=== PATIENT | male | born 1940 | race African-American/Black ===

== ENCOUNTER 2016-08-15 02:23 | Inpatient (IN) | payer MEDICARE ==
[2016-08-15] VITALS (9 sets, daily range): BP systolic 118–179; BP diastolic 55–73
[~2016-08-15] VITALS: Ht 91.4 cm; Wt 69.0 kg
[~2016-08-15 02:23] MED LIST: ACETAMINOPHEN325 MG PO; FERROUS SULF325 M2 PO; GABAPENTIN100 MG PO; GABAPENTIN300 MG PO; GLIPIZIDE10 M2 PO; GLIPIZIDE5 M2 PO; GLYB/METFO5 MG/500 M PO; LANTUS SOLOSTAR SC; LISINOPRIL20 M1 PO; LISINOPRIL5 MG PO; LOPRESSOR 550 MG/TAB PO; LORTAB 10-325 M1 TAB PO; LOVASTATIN10 M1 PO; LYRICA50 MG PO; METFORMIN HCL1000 MG PO; METFORMIN1000 MG PO; MICRONASE5 MG PO; MILK OF MAG30 ML/UDC PO; NEPHROCAPS QT PO; NEURONTIN300 MG PO; NICODERM C14 MG/24 H TD; PEPCID20 MG PO; PROMETHAZINE25 MG/M1 IM; ST JOSEPH AS81 MG PO; ZESTRIL10 M1 PO
[2016-08-15 03:20] LABS: HEMATOCRIT 48.2 % (39.0-50.0); HEMOGLOBIN 15.4 g/dl (14.0-18.0); IMMATURE GRANULOCYTES 0.3 % (0.0-1.0); MEAN CELL VOLUME 97.8 fL CALC (80.0-100.0); MEAN CORPUSCULAR HGB 31.2 pG CALC (26.0-32.0); NEUT# 4.7 thou/uL (1.82-7.42); RED BLOOD COUNT 4.93 mill/uL (4.70-6.10); RED CELL DISTRI WIDTH 13.5 % (11.5-15.5)
[2016-08-15 03:20] LABS: URINE BILIRUBIN - DIPSTICK NEGATIVE (NEGATIVE); URINE BLOOD DIPSTICK SMALL (NEGATIVE); URINE CLARITY CLEAR; URINE COLOR YELLOW; URINE GLUCOSE - DIPSTICK NEGATIVE (NEGATIVE); URINE KETONE NEGATIVE (NEGATIVE); URINE NITRITE - DIPSTICK NEGATIVE (Negative); URINE PH 8.5 (4.5-8.0); URINE PROTEIN - DIPSTICK 30 mg/dL (NEG-TRACE); URINE SPECIFIC GRAVITY 1.015; URINE UROBILINOGEN - DIPSTICK 0.2 E.U./dL (0.2)
[2016-08-15 03:22] LABS: URINE LEUK ESTERASE SMALL (NEGATIVE)
[2016-08-15 03:30] LABS: URINE BACTERIA MODERATE hpf; URINE WBC 20-50 WBC/hpf (0-5)
[2016-08-15 03:36] LABS: INFLUENZA A NONE DETECTED (NONE DETECT); INFLUENZA B NONE DETECTED (NONE DETECT)
[2016-08-15 04:21] LABS: ALBUMIN 4.4 g/dL (3.2-5.0); BILIRUBIN, TOTAL 0.7 mg/dL (0.0-1.4); CALCIUM 9.8 mg/dL (8.4-10.2); CREATININE 2.6 mg/dL (0.7-1.3); TOTAL PROTEIN 7.8 g/dL (6.3-8.2)
[2016-08-15 04:23] LABS: POTASSIUM 7.2 mmol/l (3.5-5.1)
[2016-08-15 08:00] LABS: CALCIUM 9.6 mg/dL (8.4-10.2); CREATININE 2.5 mg/dL (0.7-1.3)
[2016-08-15 08:33] LABS: POTASSIUM 5.7 mmol/l (3.5-5.1)
[2016-08-15 12:51] LABS: CALCIUM 8.8 mg/dL (8.4-10.2); CREATININE 2.3 mg/dL (0.7-1.3)
[2016-08-15 13:06] LABS: POTASSIUM 6.9 mmol/l (3.5-5.1)
[2016-08-15 19:08] LABS: POTASSIUM 5.1 mmol/l (3.5-5.1)
[2016-08-15 23:27] LABS: POTASSIUM 5.2 mmol/l (3.5-5.1)
[2016-08-16] VITALS (8 sets, daily range): BP systolic 125–152; BP diastolic 55–82
[2016-08-16 05:15] LABS: HEMATOCRIT 46.9 % (39.0-50.0); HEMOGLOBIN 15.1 g/dl (14.0-18.0); IMMATURE GRANULOCYTES 0.3 % (0.0-1.0); MEAN CELL VOLUME 97.7 fL CALC (80.0-100.0); MEAN CORPUSCULAR HGB 31.5 pG CALC (26.0-32.0); MEAN CORPUSCULAR HGB CONC 32.2 g/L CALC (32.0-36.0); NEUT# 5.62 thou/uL (1.82-7.42); RED BLOOD COUNT 4.8 mill/uL (4.70-6.10); RED CELL DISTRI WIDTH 13.4 % (11.5-15.5)
[2016-08-16 05:19] LABS: CALCIUM 8.4 mg/dL (8.4-10.2); POTASSIUM 5.1 mmol/l (3.5-5.1)
[2016-08-17 04:10] VITALS: BP 134/59
[2016-08-17 06:19] LABS: HEMATOCRIT 43.7 % (39.0-50.0); IMMATURE GRANULOCYTES 0.3 % (0.0-1.0); MEAN CORPUSCULAR HGB 31.4 pG CALC (26.0-32.0); NEUT# 4.44 thou/uL (1.82-7.42); RED BLOOD COUNT 4.46 mill/uL (4.70-6.10); RED CELL DISTRI WIDTH 13.3 % (11.5-15.5)
[2016-08-17 06:30] LABS: CALCIUM 8.4 mg/dL (8.4-10.2); CREATININE 1.7 mg/dL (0.7-1.3); POTASSIUM 4.7 mmol/l (3.5-5.1)
[2016-08-17 08:03] VITALS: BP 142/71
[2016-08-17 11:04] VITALS: BP 124/61
[2016-08-17 15:21] VITALS: BP 122/59
[2016-08-17 18:45] VITALS: BP 143/72
[2016-08-18] VITALS (7 sets, daily range): BP systolic 125–145; BP diastolic 53–70
[2016-08-18 04:51] LABS: IMMATURE GRANULOCYTES 0.2 % (0.0-1.0); MEAN CELL VOLUME 98.1 fL CALC (80.0-100.0); MEAN CORPUSCULAR HGB 31.1 pG CALC (26.0-32.0); MEAN CORPUSCULAR HGB CONC 31.7 g/L CALC (32.0-36.0); NEUT# 2.63 thou/uL (1.82-7.42); RED BLOOD COUNT 4.18 mill/uL (4.70-6.10); RED CELL DISTRI WIDTH 13.2 % (11.5-15.5)
[2016-08-18 05:20] LABS: CREATININE 1.5 mg/dL (0.7-1.3); POTASSIUM 4.6 mmol/l (3.5-5.1)
[2016-08-18 14:03] LABS: URINE BILIRUBIN - DIPSTICK NEGATIVE (NEGATIVE); URINE BLOOD DIPSTICK SMALL (NEGATIVE); URINE CLARITY CLEAR; URINE COLOR YELLOW; URINE GLUCOSE - DIPSTICK NEGATIVE (NEGATIVE); URINE KETONE NEGATIVE (NEGATIVE); URINE LEUK ESTERASE NEGATIVE (NEGATIVE); URINE NITRITE - DIPSTICK NEGATIVE (Negative); URINE PROTEIN - DIPSTICK 30 mg/dL (NEG-TRACE); URINE UROBILINOGEN - DIPSTICK 0.2 E.U./dL (0.2)
[2016-08-18 15:08] LABS: URINE SQUAMOUS EPITHELIAL CELL FEW EPI/hpf (0-FEW)
[2016-08-19 04:25] VITALS: BP 135/60
[2016-08-19 04:48] LABS: HEMATOCRIT 37.3 % (39.0-50.0); HEMOGLOBIN 12.1 g/dl (14.0-18.0); IMMATURE GRANULOCYTES 0.6 % (0.0-1.0); MEAN CELL VOLUME 96.6 fL CALC (80.0-100.0); MEAN CORPUSCULAR HGB 31.3 pG CALC (26.0-32.0); MEAN CORPUSCULAR HGB CONC 32.4 g/L CALC (32.0-36.0); RED BLOOD COUNT 3.86 mill/uL (4.70-6.10); RED CELL DISTRI WIDTH 13.2 % (11.5-15.5)
[2016-08-19 05:13] LABS: CALCIUM 7.7 mg/dL (8.4-10.2); CREATININE 1.4 mg/dL (0.7-1.3); POTASSIUM 4.5 mmol/l (3.5-5.1)
[2016-08-19 08:15] VITALS: BP 157/64
[2016-08-19 11:13] VITALS: BP 141/62
[2016-08-19 14:47] VITALS: BP 142/62
[2016-08-19 19:02] VITALS: BP 161/78
[2016-08-19 23:40] VITALS: BP 162/74
[2016-08-20 04:35] VITALS: BP 168/81
[2016-08-20 05:50] LABS: HEMATOCRIT 39.2 % (39.0-50.0); IMMATURE GRANULOCYTES 0.5 % (0.0-1.0); MEAN CELL VOLUME 94.2 fL CALC (80.0-100.0); MEAN CORPUSCULAR HGB 31.3 pG CALC (26.0-32.0); MEAN CORPUSCULAR HGB CONC 33.2 g/L CALC (32.0-36.0); NEUT# 3.82 thou/uL (1.82-7.42); RED BLOOD COUNT 4.16 mill/uL (4.70-6.10)
[2016-08-20 06:08] LABS: ANION GAP 15 (6-22 (CALC)); BUN 17 mg/dL (8-23); BUN/CREATININE RATIO 13 (12-20 (CALC)); CALCIUM 8.6 mg/dL (8.4-10.2); CARBON DIOXIDE 20 mmol/l (22-30); CHLORIDE 110 mmol/l (95-108); CREATININE 1.3 mg/dL (0.7-1.3); GFR 54 ML/MIN (>=60 (CALC)); GFR FOR AFR.AMER. > 60 ML/MIN (>=60 (CALC)); GLUCOSE 138 mg/dL (82-115); POTASSIUM 4.5 mmol/l (3.5-5.1); SODIUM 141 mmol/l (137-146)
[2016-08-20 08:03] VITALS: BP 148/70
[2016-08-20 12:32] VITALS: BP 129/67
[2016-08-20 15:34] VITALS: BP 125/72
[2016-08-20 19:00] VITALS: BP 161/86
[2016-08-20 23:55] VITALS: BP 143/67
[2016-08-21] VITALS (7 sets, daily range): BP systolic 115–154; BP diastolic 53–75
[2016-08-22] VITALS (11 sets, daily range): BP systolic 128–157; BP diastolic 58–79
[2016-08-22 06:12] LABS: ANION GAP 12 (6-22 (CALC)); BUN 15 mg/dL (8-23); BUN/CREATININE RATIO 12 (12-20 (CALC)); CALCIUM 8.2 mg/dL (8.4-10.2); CARBON DIOXIDE 19 mmol/l (22-30); CHLORIDE 110 mmol/l (95-108); CREATININE 1.2 mg/dL (0.7-1.3); GFR 59 ML/MIN (>=60 (CALC)); GFR FOR AFR.AMER. > 60 ML/MIN (>=60 (CALC)); GLUCOSE 94 mg/dL (82-115); HEMATOCRIT 34.5 % (39.0-50.0); HEMOGLOBIN 11.6 g/dl (14.0-18.0); IMMATURE GRANULOCYTES 0.8 % (0.0-1.0); MEAN CELL VOLUME 91.8 fL CALC (80.0-100.0); MEAN CORPUSCULAR HGB 30.9 pG CALC (26.0-32.0); MEAN CORPUSCULAR HGB CONC 33.6 g/L CALC (32.0-36.0); POTASSIUM 4.1 mmol/l (3.5-5.1); RED BLOOD COUNT 3.76 mill/uL (4.70-6.10); SODIUM 138 mmol/l (137-146)
[2016-08-22 06:40] LABS: MANUAL DIFFERENTIAL YES; PLATELET COUNT 180 thou/uL (130-400)
[2016-08-23] VITALS (7 sets, daily range): BP systolic 135–177; BP diastolic 55–79
[2016-08-23 05:11] LABS: HEMATOCRIT 37.9 % (39.0-50.0); HEMOGLOBIN 12.7 g/dl (14.0-18.0); IMMATURE GRANULOCYTES 0.6 % (0.0-1.0); MEAN CELL VOLUME 92.2 fL CALC (80.0-100.0); MEAN CORPUSCULAR HGB 30.9 pG CALC (26.0-32.0); MEAN CORPUSCULAR HGB CONC 33.5 g/L CALC (32.0-36.0); NEUT# 5.1 thou/uL (1.82-7.42); RED BLOOD COUNT 4.11 mill/uL (4.70-6.10); RED CELL DISTRI WIDTH 13.1 % (11.5-15.5)
[2016-08-23 05:38] LABS: ANION GAP 13 (6-22 (CALC)); BUN 15 mg/dL (8-23); BUN/CREATININE RATIO 13 (12-20 (CALC)); CALCIUM 8.3 mg/dL (8.4-10.2); CARBON DIOXIDE 21 mmol/l (22-30); CHLORIDE 109 mmol/l (95-108); CREATININE 1.2 mg/dL (0.7-1.3); GFR 59 ML/MIN (>=60 (CALC)); GFR FOR AFR.AMER. > 60 ML/MIN (>=60 (CALC)); GLUCOSE 112 mg/dL (82-115); MAGNESIUM 1.8 mg/dL (1.6-2.3); POTASSIUM 4.1 mmol/l (3.5-5.1); SODIUM 138 mmol/l (137-146)
[2016-08-23] MEDS ORDERED: LOPRESSOR 550 MG/TAB PO (12:54)
[2016-08-23] MEDS ORDERED: ELIQUIS2.5 MG PO (12:54)
[2016-08-23] MEDS ORDERED: Levaquin PO (12:55)
[2016-08-23] MEDS ORDERED: MEROPENEM1 GM IV (12:55)
== END 2016-08-23 14:30 | DRG 872 ==
LOC: ENPENDDIS → ED 02:23 → ED-I 04:35 → ED 04:59 → ICU 05:00 → MS2 05:00 → ICU 08-22 09:10
PROVIDERS: Emergency Medicine; Internal Medicine; ADMIT Internal Medicine; ATTEND Internal Medicine
PROC: 0T9B70Z Drainage of Bladder with Drainage Device, Via Natural or Artificial Opening (ICD-10-PCS; principal; 2016-08-15)
PROC: 05H933Z Insertion of Infusion Device into Right Brachial Vein, Percutaneous Approach (ICD-10-PCS; 2016-08-23)
PROC: B516ZZA Fluoroscopy of Right Subclavian Vein, Guidance (ICD-10-PCS; 2016-08-23)
DX: A41.9 Sepsis, unspecified organism (principal); N17.9 Acute kidney failure, unspecified; E87.2 Acidosis; E11.40 Type 2 diabetes mellitus with diabetic neuropathy, unspecified; M62.82 Rhabdomyolysis; D69.6 Thrombocytopenia, unspecified; N39.0 Urinary tract infection, site not specified; I47.1 Supraventricular tachycardia; R65.20 Severe sepsis without septic shock; E87.5 Hyperkalemia; I10 Essential (primary) hypertension; I25.10 Atherosclerotic heart disease of native coronary artery without angina pectoris; B96.89 Other specified bacterial agents as the cause of diseases classified elsewhere; I48.0 Paroxysmal atrial fibrillation; E83.42 Hypomagnesemia; F03.90 Unspecified dementia, unspecified severity, without behavioral disturbance, psychotic disturbance, mood disturbance, and anxiety; F10.21 Alcohol dependence, in remission
CPT/HCPCS: J0692; J1956; J2185; J3370

== ENCOUNTER 2017-02-07 17:15 | Observation (INO) | payer MEDICARE, OTHER ==
[~2017-02-07] VITALS: Ht 188 cm; Wt 70.0 kg
[~2017-02-07 17:15] MED LIST changes: +ELIQUIS2.5 MG PO; +Levaquin PO; +MEROPENEM1 GM IV
--- NOTE | 2017-02-07 17:35 | NUR ---
PATIENT WHEELED INTO LOBBY UNRESPONSIVE AND LEFT. PATIENT BROUGHT TO ROOM 11 AND ACCUCHECK COMPLETED PATIENT BLOOD SUGAR 29. VERBAL ORDERS FOR D50 RECIEVED AND ADMINSTERED. PATIENJT ALERT AND ORIENTED AFTER 5 MINUTES. PATIENT STATES TOOK MEDICATION BNUT DOESNT EAT TOO MUCH JUST SOME LIQUOR
[2017-02-07 18:06] LABS: HEMATOCRIT 46.4 % (39.0-50.0); HEMOGLOBIN 15.4 g/dl (14.0-18.0); IMMATURE GRANULOCYTES 0.2 % (0.0-1.0); MEAN CELL VOLUME 97.7 fL CALC (80.0-100.0); MEAN CORPUSCULAR HGB 32.4 pG CALC (26.0-32.0); MEAN CORPUSCULAR HGB CONC 33.2 g/L CALC (32.0-36.0); NEUT# 2.85 thou/uL (1.82-7.42); RED BLOOD COUNT 4.75 mill/uL (4.70-6.10); RED CELL DISTRI WIDTH 14.6 % (11.5-15.5)
--- NOTE | 2017-02-07 18:17 | NUR ---
PATEINT RESTING VOICES NO COMPLAINTS AT THIS TIME. PATIENT ALERT AND ORIENTED AT THIS TIME. PATIENT STATES HE TAKES MEDICATION WHEN HE WANTS TO AND DOESNT KNOW EXACTLY WHAT HE TAKES OR LAST TIME HE TOOK ANYTHING. AT BEDSIDE AND IS ALSO UNSURE OF PATIENTS CURRENT MEDICATION LIST OR FREQUENCY AT WHICH PATIENT TAKES MEDICATION
[2017-02-07 18:22] LABS: ALBUMIN 3.9 g/dL (3.2-5.0); BILIRUBIN, TOTAL 0.8 mg/dL (0.0-1.4); CALCIUM 9.2 mg/dL (8.4-10.2); CREATININE 1.4 mg/dL (0.7-1.3); POTASSIUM 4.6 mmol/l (3.5-5.1); TOTAL PROTEIN 6.6 g/dL (6.3-8.2)
--- NOTE | 2017-02-07 18:30 | NUR ---
REPORT RECIEVED FROM MERARY RYAN. PATIENT RESTING COMFORTABLY IN STRETCHER. IV FLUIDS INITIATED. ACCUCHECK RECHECK 126. PATIENT A&O X3 AND DENIES ANY PAIN AT THIS TIME. PATIENT FAMILY AT BEDSIDE. WILL CONTINUE TO MONITOR.
[2017-02-07 18:54] LABS: URINE BILIRUBIN - DIPSTICK NEGATIVE (NEGATIVE); URINE BLOOD DIPSTICK SMALL (NEGATIVE); URINE CLARITY CLEAR; URINE COLOR YELLOW; URINE GLUCOSE - DIPSTICK 250 mg/dL (NEGATIVE); URINE KETONE NEGATIVE (NEGATIVE); URINE LEUK ESTERASE NEGATIVE (NEGATIVE); URINE NITRITE - DIPSTICK NEGATIVE (Negative); URINE PROTEIN - DIPSTICK 30 mg/dL (NEG-TRACE); URINE UROBILINOGEN - DIPSTICK 0.2 E.U./dL (0.2)
--- NOTE | 2017-02-07 19:00 | NUR ---
NOTIFIED OF DECREASING BLOOD SUGAR. MEAL TRAY SERVED.
[2017-02-07 19:06] LABS: URINE SQUAMOUS EPITHELIAL CELL FEW EPI/hpf (0-FEW)
--- NOTE | 2017-02-07 19:10 | NUR ---
REPORT GIVEN TO MERARY SEE.
--- NOTE | 2017-02-07 19:14 | NUR ---
REPORT GIVEN TO MERARY GRISSOM AND CELSA SANDOVAL.
--- NOTE | 2017-02-07 19:40 | NUR ---
PT IVF COMPLETED. WARM BLANET GIVEN. DENIES ANY PAIN AT THIS TIME. THANKFUL TOWARDS STAFF. B/S. CALL LIGHT WITHIN REACH.
[2017-02-07 19:44] LABS: BARBITURATES NEGATIVE (NEGATIVE); COCAINE NEGATIVE (NEGATIVE); METHADONE NEGATIVE (NEGATIVE); OXCYCODONE NEGATIVE (NEGATIVE); TETRAHYDROCANNABIONOL NEGATIVE (NEGATIVE); TRICYLIC ANTIDEPRESSANTS NEGATIVE (NEGATIVE)
--- NOTE | 2017-02-07 19:57 | NUR ---
2ND LACTIC DRAWN BY EXCHANGE SPECIALIST.
--- NOTE | 2017-02-07 20:01 | NUR ---
D5LR INFUSING TO LAC. PT TOLERATING WELL. DENIES ANY NEEDS AT THIS TIME. VSS. RESP EVEN AND UNLABORED. CALL LIGHT WITHIN REACH. WILL CONTIUE TO MONITOR.
--- NOTE | 2017-02-07 20:05 | NUR ---
REPORT GIVEN TO CRISTIAN ON [facility]
--- NOTE | 2017-02-07 20:07 | NUR ---
Admission Note Report Given to: MERARY FOSTER Transported by: Wheelchair X Stretcher Transported with: X Nurse Transporter X Patent IV O2 X [address] Clerk
--- NOTE | 2017-02-07 20:25 | NUR ---
PT TAMEKA FLOOR WITH ER STAFF. AMBULATED FROM STRETCHER TO BED IN ROOM 280. ACCU CHECK DONE AT THIS TIME WAS 128. WILL CONTINUE TO MONITOR.
--- NOTE | 2017-02-07 21:10 | NUR ---
PT RESTING IN BED WITH EYES CLOSED. AROUSED TO VERBAL STIMULI. BED ALARM ON PT DUE TO NOT BEING STEADY ON FEET AND PERIODS OF CONFUSION. PT IS ALERT AND ORIENTED. PERRLA. DENTURES REMOVED DUE TO PT SLEEPING. AND THEY'RE FALLING OUT. RESP ARE EVEN AND UNLABORED. LUNGS ARE CLEAR. TELE IN PLACE. HR REGULAR. PULSES PALPABLE THROUGHOUT. NO EDEMA NOTED. BS ACTIVE. #20 LAC WITH D5LR INFUSING AT 75CC/HR. NO REDNESS OR EDEMA NOTED AT SITE. WILL CONTINUE TO MONITOR.
[2017-02-07 21:15] VITALS: BP 129/57
--- NOTE | 2017-02-07 22:36 | NUR ---
ACCUCHECK 70. ORANGE JUICE GIVEN TO PATIENT. WILL RECHECK ACCUCHECK AND CONTINUE TO MONITOR.
--- NOTE | 2017-02-07 23:31 | NUR ---
ACCU CHECK 68. ENSURE CLEAR GIVEN WITH 27GRAMS OF SUGAR. WILL RECHECK ACCUCHECK IN 1 HOUR.
--- NOTE | 2017-02-07 23:40 | NUR ---
1 AMP D50 GIVEN TO PT. WILL RECHECK ACCUCHECK AND CONTINUE TO MONITOR
[2017-02-07 23:57] VITALS: BP 144/67
--- NOTE | 2017-02-08 00:36 | NUR ---
ACCUCHECK 155. WILL RECHECK IN 2 HOURS.
--- NOTE | 2017-02-08 01:10 | NUR ---
report recevied from Shayy Avalos RN; care assumed
--- NOTE | 2017-02-08 02:03 | NUR ---
resting with eyes closed; no distress noted; easily arousable; alert and oriented; accucheck 97; iv patent; no redness or edema noted at site; bed alarm active for pt safety; will continue to monitor
[2017-02-08 04:03] VITALS: BP 140/68
--- NOTE | 2017-02-08 04:03 | NUR ---
pt resting with eyes closed; resp even and unlabored; easily aroused; a&o X3; denies s/sx of hypoglycemia; accucheck 72; pt declines po fluids/food offered; medicated with D50 as per orders/parameter; vss; bed alarm attached for pt safety; tele monitor intact; will continue to monitor
[2017-02-08 05:31] LABS: ANION GAP 9 (6-22 (CALC)); BUN 11 mg/dL (8-23); BUN/CREATININE RATIO 8 (12-20 (CALC)); CALCIUM 8.5 mg/dL (8.4-10.2); CARBON DIOXIDE 20 mmol/l (22-30); CHLORIDE 114 mmol/l (95-108); CREATININE 1.3 mg/dL (0.7-1.3); GFR 54 ML/MIN (>=60 (CALC)); GFR FOR AFR.AMER. > 60 ML/MIN (>=60 (CALC)); GLUCOSE 122 mg/dL (82-115); MAGNESIUM 1.5 mg/dL (1.6-2.3); POTASSIUM 4.5 mmol/l (3.5-5.1); SODIUM 139 mmol/l (137-146)
--- NOTE | 2017-02-08 06:14 | NUR ---
resting in bed with eyes closed; easily aroused; offers no complaints; iv patent; accucheck of 88; bed alarm attached for pt safety; bed in lowest position; call light within reach
--- NOTE | 2017-02-08 06:40 | NUR ---
pt able to take 200ml of Ensure clear/27 gm sugar
--- NOTE | 2017-02-08 07:00 | NUR ---
RECEIVED BEDSIDE REPORT FROM RIKA REAGAN. RESTING IN BED WITH EYES CLSOED, AWAKENS EASILY. RESPS EVEN AND UNLABORED ON ROOM AIR, TELE MONITOR IN PLACE. VOICES NO NEEDS AT THIS TIME. PLAN OF CARE DISCUSSED. SAFETY PRECAUTIONS REINFORCED. BED IN LOWEST POSITION WITH WHEELS LOCKED. BED ALARM ON FOR SAFETY. CALL LIGHT WITHIN REACH. WILL CONTINUE TO MONITOR.
[2017-02-08 07:21] VITALS: BP 134/62
[2017-02-08] MEDS ORDERED: TRADJENTA5 MG PO (09:23)
--- NOTE | 2017-02-08 09:30 | NUR ---
DR GARCIA IN WITH PT, NEW ORDERS RECEIVED.
[2017-02-08] MEDS ORDERED: METFORMIN1000 MG PO (10:08)
[2017-02-08] MEDS ORDERED: GABAPENTIN300 M2 PO (10:11)
[2017-02-08] MEDS ORDERED: METOPROL TAR100 MG PO (10:13)
[2017-02-08] MEDS ORDERED: ELIQUIS2.5 MG PO (10:14)
[2017-02-08] MEDS ORDERED: ACID CONTROL MA20 MG PO (10:14)
[2017-02-08 12:00] VITALS: BP 141/72
--- NOTE | 2017-02-08 13:55 | NUR ---
RESTING IN BED WATCHING TV. AT BEDSIDE. RESPS EVEN AND UNLABORED ON ROOM AIR, TELE MONITOR IN PLACE. ACCUCHECK 114. DENIES PAIN OR DISCOMFORT. CALL LIGHT IWHTIN REACH. WILL CONTINUE TO MONITOR.
--- NOTE | 2017-02-08 15:17 | NUR ---
Discharge instructions given. Patient verbalizes understanding of same. Discharged in stable condition via Wheelchair to Home with spouse. All belongings sent with pt.
== END 2017-02-08 15:15 ==
LOC: ED 17:15 → ED-I 17:51 → ED 17:51 → MS2 19:27
PROVIDERS: Emergency Medicine; ADMIT Internal Medicine; ATTEND Internal Medicine
DX: E11.649 Type 2 diabetes mellitus with hypoglycemia without coma (principal); G93.41 Metabolic encephalopathy; E11.42 Type 2 diabetes mellitus with diabetic polyneuropathy; I10 Essential (primary) hypertension; K21.9 Gastro-esophageal reflux disease without esophagitis; I48.0 Paroxysmal atrial fibrillation; E83.42 Hypomagnesemia; F17.290 Nicotine dependence, other tobacco product, uncomplicated; Z79.84 Long term (current) use of oral hypoglycemic drugs; Z79.01 Long term (current) use of anticoagulants

== ENCOUNTER → 2018-01-16 | Outpatient (REF) | payer MEDICARE ==
[~2018-01-16] MED LIST changes: +ACID CONTROL MA20 MG PO; +GABAPENTIN300 M2 PO; +METOPROL TAR100 MG PO; +TRADJENTA5 MG PO
[2018-01-16 09:28] LABS: HEMATOCRIT 44.9 % (39.0-50.0); IMMATURE GRANULOCYTES 0.1 % (0.0-5.0); MEAN CELL VOLUME 97.2 fL CALC (80.0-100.0); MEAN CORPUSCULAR HGB 32.5 pG CALC (26.0-32.0); MEAN CORPUSCULAR HGB CONC 33.4 g/L CALC (32.0-36.0); NEUT# 1.59 thou/uL (1.82-7.42); RED BLOOD COUNT 4.62 mill/uL (4.70-6.10); RED CELL DISTRI WIDTH 12.6 % (11.5-15.5)
[2018-01-16 10:16] LABS: ALBUMIN 4.2 g/dL (3.2-5.0); BILIRUBIN, TOTAL 0.8 mg/dL (0.0-1.4); CHOLESTEROL HDL RATIO 3.5 (<4.4 (CALC)); CREATININE 2.4 mg/dL (0.7-1.3); TOTAL PROTEIN 7.3 g/dL (6.3-8.2)
[2018-01-16 10:21] LABS: POTASSIUM 5.6 mmol/l (3.5-5.1)
== END | disposition home or self-care (01) ==
LOC: LAB 08:17
PROVIDERS: ATTEND Internal Medicine Geriatric Medicine
DX: E11.9 Type 2 diabetes mellitus without complications (principal); I10 Essential (primary) hypertension; N18.6 End stage renal disease

== ENCOUNTER → 2018-06-17 | Outpatient (REF) | payer MEDICARE ==
[2018-06-17 08:51] LABS: HEMATOCRIT 39.5 % (39.0-50.0); IMMATURE GRANULOCYTES 0.2 % (0.0-5.0); MEAN CELL VOLUME 93.6 fL CALC (80.0-100.0); MEAN CORPUSCULAR HGB 30.8 pG CALC (26.0-32.0); MEAN CORPUSCULAR HGB CONC 32.9 g/L CALC (32.0-36.0); NEUT# 2.02 thou/uL (1.82-7.42); RED BLOOD COUNT 4.22 mill/uL (4.70-6.10); RED CELL DISTRI WIDTH 13.2 % (11.5-15.5)
[2018-06-17 09:12] LABS: ALBUMIN 4.3 g/dL (3.2-5.0); BILIRUBIN, TOTAL 0.5 mg/dL (0.0-1.4); CHOLESTEROL HDL RATIO 2.5 (<4.4 (CALC)); CREATININE 2.3 mg/dL (0.7-1.3); TOTAL PROTEIN 7.1 g/dL (6.3-8.2)
== END | disposition home or self-care (01) ==
LOC: LAB 07:51
PROVIDERS: Internal Medicine Geriatric Medicine; ATTEND Nurse Practitioner Family
DX: I10 Essential (primary) hypertension (principal); E11.9 Type 2 diabetes mellitus without complications

== ENCOUNTER 2018-09-16 16:49 | Observation (INO) | payer MEDICARE ==
[~2018-09-16] VITALS: Ht 188 cm; Wt 63.6 kg
--- NOTE | 2018-09-16 17:16 | NUR ---
PT ARRIVED TO MED/SURG ROOM 262 VIA WHEELCHAIR IN STABLE CONDITION ACCOMPANIED BY CELSA KING;PT AMBULATED WITH A STEADY GAIT TO BEDSIDE; A&O X4,ORIENTED TO ROOM AND CALL LIGHT SYSTEM;WT AND VS OBTAINED;PT REPORTS HAVING LAB WORK DONE THIS MORNING AT [facility] AND 'S OFFICE CALLING TO REPORT HE WAS HYPERCALEMIC AND NEEDED TO REPORT DIRECTLY TO MED/SURG FOR DIRECT ADMIT;PT DENIES ANY CURRENT PAIN OR DISCOMFORTS,PAIN SCALE AND REPORTING EDUCATED;RESPIRATIONS EVEN AND UNLABORED ON RA;ABDOMEN SOFT ON PALPATION AND ACTIVE IN ALL 4 QUADRANTS, LAST BM 09/16/18;WEAK PEDAL PULSES;GENERALIZED DRYNESS/FLAKINESS NOTED TO SKIN,OTHERWISE APPEARS INTACT;TELE MONITORING PLACED ON PT;ACCUCHECK 79;UNABLE TO OBTAIN IV SITE AFTER X2 ATTEMPTS, ANOTHER NURSE WILL ATTEMPT;PRUNE JUICE PROVIDED PER ORDER;PT DENIES ANY ADDITIONAL NEEDS AND IS ENCOURAGED TO CALL FOR ASSISTANCE IF NEEDED;FALL PRECAUTIONS IN PLACE WITH BED IN THE LOWEST POSITION AND CALL LIGHT IN REACH;WILL CONTINUE TO MONITOR
[2018-09-16 17:47] VITALS: BP 153/58
[2018-09-16 18:26] LABS: HEMATOCRIT 38.5 % (39.0-50.0); HEMOGLOBIN 12.3 g/dl (14.0-18.0); IMMATURE GRANULOCYTES 0.1 % (0.0-5.0); MEAN CELL VOLUME 95.3 fL CALC (80.0-100.0); MEAN CORPUSCULAR HGB 30.4 pG CALC (26.0-32.0); MEAN CORPUSCULAR HGB CONC 31.9 g/L CALC (32.0-36.0); NEUT# 3.05 thou/uL (1.82-7.42); RED BLOOD COUNT 4.04 mill/uL (4.70-6.10); RED CELL DISTRI WIDTH 13.5 % (11.5-15.5)
[2018-09-16 18:49] VITALS: BP 169/65
[2018-09-16 18:54] LABS: CREATININE 2.1 mg/dL (0.7-1.3)
--- NOTE | 2018-09-16 19:30 | NUR ---
PATIENT RESTING IN BED AWAKE ALERT AND ORIENTEDX3. AUREA REAGAN FROM IVT HERE AND WAS UNABLE TO GET IV ACCESS, TELE MONITOR IN PLACE. PATIENT WITH NO COMPLAINTS EXCEPT-"NO MORE STICKS". 1999-WAS UNABLE TO GET IV ACCESS AFTER 2 ATTEMPTS. TYREE REAGAN FROM ER HERE AND WAS ABLE TO ACCESS LEFT NECK SITE WITH GOOD BLOOD RETURN. PATIENT WAS ABLE TO PROVIDED URINE SPEC AND IT WAS SENT TO LAB. SPOKE TO DR. BONDS TO CLARIFY NA BICARB ORDER. PATIENT WITH NO COMPLAINTS AT THIS TIME. CALL LIGHT IN REACH, WILL CONT TO MONITOR.
--- NOTE | 2018-09-16 20:45 | NUR ---
PATIENT RESTING IN BED-MEDICATED WITH KAYXELATE 30GM PO ORDERED ALONG WITH HS MEDS. 2114- I AMP OF SODIUM BICARB GIVEN ORDERED SLOW IVP. IVF NS HUNG AND INFUSING AT 100CC/HR VIA LEFT NECK SITE. 2029-SODIUM BICARB GTT HUNG ORDERED-1 AMP IN 50CC OF NACL. PATIENT WITH NO COMPLAINTS AT THIS TIME. MUCH CALMER NOW THAT IV SITE HAS BEEN ACCESSED. ASAFETY PRECAUTIONS REINFORCED. CALL LIGHT IN REACH. WILL CONT TO MONITOR.
[2018-09-16 22:45] LABS: URINE BILIRUBIN - DIPSTICK NEGATIVE (NEGATIVE); URINE BLOOD DIPSTICK NEGATIVE (NEGATIVE); URINE COLOR YELLOW; URINE GLUCOSE - DIPSTICK NEGATIVE (NEGATIVE); URINE KETONE NEGATIVE (NEGATIVE); URINE LEUK ESTERASE NEGATIVE (Negative); URINE NITRITE - DIPSTICK NEGATIVE (Negative); URINE PH 5.5 (4.5-8.0); URINE PROTEIN - DIPSTICK NEGATIVE (NEG-TRACE); URINE SPECIFIC GRAVITY 1.025; URINE UROBILINOGEN - DIPSTICK 0.2 E.U./dL (0.2)
[2018-09-16 22:58] LABS: URINE CLARITY CLEAR
[2018-09-17] VITALS: BP 126/59
--- NOTE | 2018-09-17 00:55 | NUR ---
PATIENT APPEARS SLEEPING AT THIS TIME. IVF NS PATENT AND INFUSING LEFT NECK SITE. APPEARS HEALTHY AT THIS TIME. TELE MONITOR IN PLACE. CALL LIGHT IN REACH. WILL CONT TO MONITOR.
[2018-09-17 03:38] VITALS: BP 135/59
[2018-09-17 05:43] LABS: BILIRUBIN, TOTAL 0.5 mg/dL (0.0-1.4); CREATININE 1.8 mg/dL (0.7-1.3); TOTAL PROTEIN 5.6 g/dL (6.3-8.2)
[2018-09-17 05:51] LABS: ALBUMIN 3.1 g/dL (3.2-5.0); POTASSIUM 5.7 mmol/l (3.5-5.1)
--- NOTE | 2018-09-17 07:05 | NUR ---
REPORT RECEIVED FROM MERARY HARDY;PT APPEARS TO BE SLEEPING IN SEMI FOWLERS POSITION;RESPIRATIONS EVEN AND UNLABORED ON RA;NO S/S OF DISTRESS NOTED;IV FLUIDS INFUSING WITH EASE;TELE MONITORING IN PLACE;SAFETY PRECAUTIONS REINFORCED WITH BED IN THE LOWEST POSITION AND CALL LIGHT IN REACH;WILL CONTINUE TO MONITOR
--- NOTE | 2018-09-17 08:00 | NUR ---
PT RESTING AT BEDSIDE EATING BREAKFAST,A&O X3;VS OBTAINED AND ASSESSMENT COMPLETED;PT DENIES ANY CURRENT PAIN OR DISCOMFORTS,PAIN SCALE AND REPORTING EDUCATED;RESPIRATIONS EVEN AND UNLABORED ON RA,CLEAR LUNG SOUNDS;ABDOMEN SOFT ON PALPATION AND ACTIVE IN ALL 4 QUADRANTS;WEAK PEDAL PULSES;SKIN INTACT;TELE MONITORING IN PLACE;IV SITE INFUSING NS @ 100ML.HR,SITE APPEARS HEALTHY;PT DENIES ANY CURRENT NEEDS AND IS ENCOURAGED TO CALL FOR ASSISTANCE IF NEEDED;FALL PRECAUTIONS IN PLACE WITH CALL LIGHT IN REACH;WILL CONTINUE TO MONITOR
[2018-09-17 08:02] VITALS: BP 135/42
--- NOTE | 2018-09-17 08:35 | NUR ---
AT BEDSIDE DISCUSSING POC WITH PT INCLUDING D/C HOME.
[2018-09-17 11:03] VITALS: BP 141/49
--- NOTE | 2018-09-17 12:00 | NUR ---
PT RESTING IN SEMI FOWLERS POSITION EATING LUNCH;RESPIRATIONS EVEN AND UNLABORED ON RA;PT DENIES ANY CURRENT PAIN OR DISCOMFORTS;TELE MONITORING IN PLACE;ACCUCHECK 86;PT DENIES ANY ADDITIONAL NEEDS AND IS ENCOURAGED TO CALL FOR ASSISTANCE IF NEEDED;CALL LIGHT IN REACH;WILL CONTINUE TO MONITOR
--- NOTE | 2018-09-17 13:40 | NUR ---
ALL DISCHARGE INSTRUCTIONS PROVIDED AT THIS TIME,PT INSTRUCTED TO FOLLOW UP WITH PRIMARY CARE DOCTOR;IV SITE REMOVED WITH CATHETER INTACT;PT DENIES ANY ADDITIONAL NEEDS AT THIS TIME;WHEELCHAIR TO BE PROVIDED FOR DISCHARGE HOME.
[2018-09-17 13:42] LABS: CREATININE 1.8 mg/dL (0.7-1.3)
[2018-09-17 13:43] LABS: POTASSIUM 5.3 mmol/l (3.5-5.1)
--- NOTE | 2018-09-17 14:00 | NUR ---
Discharge instructions given. Patient verbalizes understanding of same. Discharged in stable condition via Wheelchair to Home with *Other. All belongings sent with pt. Pt discharged in stable condition via wheelchair accompanied by volunteer. Pt to transport himself home.
== END 2018-09-17 14:00 | disposition home or self-care (01) ==
LOC: MS2 16:49
PROVIDERS: ADMIT Internal Medicine Geriatric Medicine; ATTEND Internal Medicine Geriatric Medicine
DX: E87.5 Hyperkalemia (principal); I12.9 Hypertensive chronic kidney disease with stage 1 through stage 4 chronic kidney disease, or unspecified chronic kidney disease; E11.22 Type 2 diabetes mellitus with diabetic chronic kidney disease; N18.9 Chronic kidney disease, unspecified; E11.42 Type 2 diabetes mellitus with diabetic polyneuropathy; I25.10 Atherosclerotic heart disease of native coronary artery without angina pectoris; J44.9 Chronic obstructive pulmonary disease, unspecified; I48.0 Paroxysmal atrial fibrillation; E87.2 Acidosis; M19.90 Unspecified osteoarthritis, unspecified site

== ENCOUNTER 2018-10-01 17:25 | Observation (INO) | payer MEDICARE ==
[~2018-10-01] VITALS: Ht 165.1 cm; Wt 71.1 kg
--- NOTE | 2018-10-01 17:40 | NUR ---
PT ARRIVED TO FLOOR VIA , AMBUALTED TO BED. STEADY GAIT. REPORTS GENERALIZED WEAKNESS TO LEGS. CHANGED INTO GOWN. HOME CLOTHES FOUL SMELLING. PT. ALERT AND ORIENTED. LUNGS CLEAR, NO SOB. DENIES PAIN. REPORTING OF CONCERNS ENCOURAGED. PT STATES "I FEEL FINE." PLAN OF CARE DISCUSSED. CALL LIGHT REVIEWED AND IN REACH. PT ORIENTED TO ROOM AND EQUIPMENT. IVS ATTEMPTED BY CLAIMS PROCESSOR, UNSUCCESSFUL. IVS STARTED BY MERARY KARIMI. IVF, NS @ 100 ML/HR INITIATED. KAYEXALATE DOSE ADMINISTERED PER DR. BONDS.
[2018-10-01 18:00] LABS: HEMATOCRIT 34.8 % (39.0-50.0); IMMATURE GRANULOCYTES 0.2 % (0.0-5.0); MEAN CELL VOLUME 94.8 fL CALC (80.0-100.0); MEAN CORPUSCULAR HGB CONC 31.6 g/L CALC (32.0-36.0); NEUT# 2.52 thou/uL (1.82-7.42); RED BLOOD COUNT 3.67 mill/uL (4.70-6.10); RED CELL DISTRI WIDTH 13.7 % (11.5-15.5)
--- NOTE | 2018-10-01 18:15 | NUR ---
DR. BONDS IN TO SEE PT.
[2018-10-01 18:17] LABS: CREATININE 1.9 mg/dL (0.7-1.3); POTASSIUM 5.1 mmol/l (3.5-5.1)
[2018-10-01 19:15] VITALS: BP 134/58
--- NOTE | 2018-10-01 20:23 | NUR ---
PT RESTING IN BED WITH EYES CLOSED, EASILY AROUSED TO VERBAL STIMULI. ALERT AND ORIENTED X3, DISCUSSED POC, PT IN AGREEMENT. DISCUSSED POTASSIUM LEVEL AND MAG CITRATE; PT REFUSED AT THIS TIME. ASSESSMENT COMPLETED. CALL LIGHT IN REACH,CONTINUE TO MONITOR.
[2018-10-01 22:39] LABS: URINE BILIRUBIN - DIPSTICK NEGATIVE (NEGATIVE); URINE BLOOD DIPSTICK NEGATIVE (NEGATIVE); URINE COLOR YELLOW; URINE GLUCOSE - DIPSTICK NEGATIVE (NEGATIVE); URINE KETONE NEGATIVE (NEGATIVE); URINE LEUK ESTERASE NEGATIVE (NEGATIVE); URINE NITRITE - DIPSTICK NEGATIVE (Negative); URINE PH 5.5 (4.5-8.0); URINE PROTEIN - DIPSTICK NEGATIVE (NEG-TRACE); URINE SPECIFIC GRAVITY 1.015; URINE UROBILINOGEN - DIPSTICK 0.2 E.U./dL (0.2)
--- NOTE | 2018-10-02 00:05 | NUR ---
PT RESTING IN BED, VITALS OBTAINED, VOICES NO NEEDS OR COMPLAINTS AT THIS TIME. CALL LIGHT IN REACH,CONTINUE TO MONITOR.
[2018-10-02 00:32] VITALS: BP 146/59
[2018-10-02 04:09] VITALS: BP 134/60
--- NOTE | 2018-10-02 04:25 | NUR ---
PT RESTING IN BED WITH EYES CLOSED, NO SIGNS OF DISTRESS NOTED, RESP EVEN AND UNLABORED. CALL LIGHT IN REACH,CONTINUE TO MONITOR.
[2018-10-02 05:16] LABS: HEMOGLOBIN 10.6 g/dl (14.0-18.0); IMMATURE GRANULOCYTES 0.4 % (0.0-5.0); MEAN CELL VOLUME 95.4 fL CALC (80.0-100.0); MEAN CORPUSCULAR HGB 30.6 pG CALC (26.0-32.0); MEAN CORPUSCULAR HGB CONC 32.1 g/L CALC (32.0-36.0); NEUT# 1.91 thou/uL (1.82-7.42); RED BLOOD COUNT 3.46 mill/uL (4.70-6.10); RED CELL DISTRI WIDTH 13.7 % (11.5-15.5)
[2018-10-02 05:39] LABS: BILIRUBIN, TOTAL 0.5 mg/dL (0.0-1.4); CREATININE 1.7 mg/dL (0.7-1.3); TOTAL PROTEIN 5.6 g/dL (6.3-8.2)
[2018-10-02 05:40] LABS: ALBUMIN 3.1 g/dL (3.2-5.0); POTASSIUM 5.3 mmol/l (3.5-5.1)
[2018-10-02 09:20] VITALS: BP 151/54
--- NOTE | 2018-10-02 09:22 | NUR ---
DOCTOR CAMMIE VERBALLY STATED THAT HE ALREADY CONSULTED DOCTOR JODI PERSONALLY THIS MORNING. HE TOLD ME AT 0900 AM.
[2018-10-02] MEDS ORDERED: LOSARTAN POT100 MG PO (10:18)
[2018-10-02 11:15] VITALS: BP 137/59
--- NOTE | 2018-10-02 14:54 | NUR ---
TRANSPORTED OFF UNIT VIA WC @ 1400 BY VOLUNTEER AND JUST RETURNED TO UNIT, C/O BEING HUNGRY STATING HE HAS NOT HAD ANYTHING TO EAT/DRINK SINCE BREAKFAST, INFORMED OF TEST REQUIREMENTS FOR 2ND TIME, WILL CONTINUE TO MONITOR AND ADDRESS CONCERNS.
[2018-10-02 16:03] VITALS: BP 153/53
--- NOTE | 2018-10-02 19:43 | NUR ---
Discharge instructions given. Patient verbalizes understanding of same. Discharged in fair condition via Wheelchair to Home with *Other. All belongings sent with pt.
== END 2018-10-02 19:30 | disposition home or self-care (01) ==
LOC: MS2 17:25
PROVIDERS: ADMIT Internal Medicine Geriatric Medicine; ATTEND Internal Medicine Geriatric Medicine
DX: E87.5 Hyperkalemia (principal); E87.2 Acidosis; I13.0 Hypertensive heart and chronic kidney disease with heart failure and stage 1 through stage 4 chronic kidney disease, or unspecified chronic kidney disease; E11.22 Type 2 diabetes mellitus with diabetic chronic kidney disease; N18.9 Chronic kidney disease, unspecified; I50.9 Heart failure, unspecified; N40.1 Benign prostatic hyperplasia with lower urinary tract symptoms; R35.1 Nocturia; N39.41 Urge incontinence; I48.0 Paroxysmal atrial fibrillation; I25.10 Atherosclerotic heart disease of native coronary artery without angina pectoris; J44.9 Chronic obstructive pulmonary disease, unspecified; E78.5 Hyperlipidemia, unspecified; M19.90 Unspecified osteoarthritis, unspecified site

== ENCOUNTER 2021-12-11 14:33 | Emergency (ER) | payer MEDICARE ==
[~2021-12-11] VITALS: Ht 182.9 cm; Wt 64.4 kg
[2021-12-11] VITALS (19 sets, daily range): BP systolic 115–149; BP diastolic 55–110
[~2021-12-11 14:33] MED LIST changes: +LOSARTAN POT100 MG PO
[2021-12-11 15:13] LABS: HEMATOCRIT 33.3 % (39.0-50.0); HEMOGLOBIN 11.2 g/dl (14.0-18.0); IMMATURE GRANULOCYTES 0.3 % (0.0-5.0); MEAN CELL VOLUME 87.6 fL CALC (80.0-100.0); MEAN CORPUSCULAR HGB 29.5 pG CALC (26.0-32.0); MEAN CORPUSCULAR HGB CONC 33.6 g/dL CAL (32.0-36.0); NEUT# 4.51 thou/uL (1.82-7.42); RED BLOOD COUNT 3.8 mill/uL (4.70-6.10)
[2021-12-11 15:23] LABS: ALBUMIN 3.7 g/dL (3.2-5.0); BILIRUBIN, TOTAL 0.5 mg/dL (0.0-1.4); CREATININE 2.2 mg/dL (0.7-1.3); POTASSIUM 4.8 mmol/l (3.5-5.1); TOTAL PROTEIN 7.1 g/dL (6.3-8.2)
[2021-12-11] MEDS ORDERED: NORVASC5 M1 PO (16:05)
[2021-12-11] MEDS ORDERED: VITAMIN D2400 UNIT PO (16:11)
[2021-12-11 17:31] LABS: URINE BILIRUBIN - DIPSTICK NEGATIVE (NEGATIVE); URINE BLOOD DIPSTICK NEGATIVE (NEGATIVE); URINE COLOR YELLOW; URINE GLUCOSE - DIPSTICK NEGATIVE (NEGATIVE); URINE KETONE NEGATIVE (NEGATIVE); URINE LEUK ESTERASE NEGATIVE (NEGATIVE); URINE PH 5.5 (4.5-8.0); URINE PROTEIN - DIPSTICK TRACE mg/dL (NEG-TRACE); URINE SPECIFIC GRAVITY 1.025
[2021-12-11 17:33] LABS: URINE NITRITE - DIPSTICK NEGATIVE (Negative)
== END 2021-12-11 19:37 | disposition home or self-care (01) ==
LOC: ED 14:33
PROVIDERS: Family Medicine
DX: R53.1 Weakness (principal); E11.22 Type 2 diabetes mellitus with diabetic chronic kidney disease; I12.9 Hypertensive chronic kidney disease with stage 1 through stage 4 chronic kidney disease, or unspecified chronic kidney disease; N18.9 Chronic kidney disease, unspecified; I25.10 Atherosclerotic heart disease of native coronary artery without angina pectoris; F17.200 Nicotine dependence, unspecified, uncomplicated; Z20.822 Contact with and (suspected) exposure to COVID-19

== ENCOUNTER 2022-01-08 13:27 | Emergency (ER) | payer MEDICARE ==
[~2022-01-08] VITALS: Ht 188 cm; Wt 70.5 kg
[~2022-01-08 13:27] MED LIST changes: +NORVASC5 M1 PO; +VITAMIN D2400 UNIT PO
[2022-01-08 14:55] VITALS: BP 147/87
[2022-01-08] MEDS ORDERED: BACTRIM DS1 TAB PO (15:06)
== END 2022-01-08 15:19 | disposition home or self-care (01) ==
LOC: ED 13:27
PROC: 0H96XZZ Drainage of Back Skin, External Approach (ICD-10-PCS; principal; 2022-01-08)
DX: L72.3 Sebaceous cyst (principal); I25.10 Atherosclerotic heart disease of native coronary artery without angina pectoris; E11.40 Type 2 diabetes mellitus with diabetic neuropathy, unspecified; E11.22 Type 2 diabetes mellitus with diabetic chronic kidney disease; I12.9 Hypertensive chronic kidney disease with stage 1 through stage 4 chronic kidney disease, or unspecified chronic kidney disease; N18.9 Chronic kidney disease, unspecified; F17.290 Nicotine dependence, other tobacco product, uncomplicated

== ENCOUNTER 2022-01-16 14:04 | Observation (INO) | payer MEDICARE ==
[2022-01-16] VITALS (16 sets, daily range): BP systolic 83–132; BP diastolic 38–69
[~2022-01-16] VITALS: Ht 188 cm; Wt 65.0 kg
[~2022-01-16 14:04] MED LIST changes: +BACTRIM DS1 TAB PO
--- NOTE | 2022-01-16 14:08 | NUR ---
PT TO ROOM VIA WC
[2022-01-16 14:32] LABS: HEMATOCRIT 29.1 % (39.0-50.0); HEMOGLOBIN 9.6 g/dl (14.0-18.0); IMMATURE GRANULOCYTES 0.4 % (0.0-5.0); MEAN CORPUSCULAR HGB 29.4 pG CALC (26.0-32.0); NEUT# 6.77 thou/uL (1.82-7.42); RED BLOOD COUNT 3.27 mill/uL (4.70-6.10); RED CELL DISTRI WIDTH 14.2 % (11.5-15.5)
[2022-01-16 14:43] LABS: ALBUMIN 3.7 g/dL (3.2-5.0); BILIRUBIN, TOTAL 0.5 mg/dL (0.0-1.4); POTASSIUM 5.1 mmol/l (3.5-5.1); TOTAL PROTEIN 7.3 g/dL (6.3-8.2)
[2022-01-16 14:45] LABS: CREATININE 3.2 mg/dL (0.7-1.3); MAGNESIUM 2.3 mg/dL (1.6-2.3)
--- NOTE | 2022-01-16 15:15 | NUR ---
Reassessment of patient completed. No distress noted IN ROOM RESTING WITH EYES CLOSED
--- NOTE | 2022-01-16 15:40 | NUR ---
PT ARRIVED TO [facility] ROOM 271. PT A/OX3. RESPIRATIONS EVEN AND UNLABORED ON ROOM AIR. LUNG SOUNDS CLEAR. HEART RHYTHM NORMAL ON TELE #4. BOWEL SOUND ACTIVE. #18G RFA INFUSING WITH IVF PER ORDER. CYST TO BACK WITH NO DRAINAGE NOTED. SKIN INTACT. PT DENIES OF ANY PAINS. PT ORIENTED TO ROOM AND CALL LIGHT SYSTEM. ALL SAFTEY PRECAUTIONS ARE IN PLACE WITH CALL LIGHT IN REACH.
--- NOTE | 2022-01-16 16:20 | NUR ---
PT IN ROOM IN BED RESTING. A FAMILY MEMBER IS IN ROOM WITH THE PT
--- NOTE | 2022-01-16 17:32 | NUR ---
PT IS ADMITTED TO [facility] ROOM 271. HE IS TRANSPORTED VIA STRETCHER TO ROOM. NAD NOTED
[2022-01-16 17:42] LABS: URINE BILIRUBIN - DIPSTICK NEGATIVE (NEGATIVE); URINE BLOOD DIPSTICK NEGATIVE (NEGATIVE); URINE COLOR YELLOW; URINE GLUCOSE - DIPSTICK NEGATIVE (NEGATIVE); URINE KETONE NEGATIVE (NEGATIVE); URINE LEUK ESTERASE NEGATIVE (NEGATIVE); URINE PROTEIN - DIPSTICK TRACE mg/dL (NEG-TRACE)
[2022-01-16 17:43] LABS: URINE NITRITE - DIPSTICK NEGATIVE (Negative)
[2022-01-17 00:31] VITALS: BP 118/52
--- NOTE | 2022-01-17 00:54 | NUR ---
TYLENOL GIVEN FOR TEMP OF 100.4.
[2022-01-17 04:46] VITALS: BP 110/47
[2022-01-17 04:54] LABS: HEMATOCRIT 24.8 % (39.0-50.0); HEMOGLOBIN 8.2 g/dl (14.0-18.0); IMMATURE GRANULOCYTES 0.4 % (0.0-5.0); MEAN CELL VOLUME 90.5 fL CALC (80.0-100.0); MEAN CORPUSCULAR HGB 29.9 pG CALC (26.0-32.0); MEAN CORPUSCULAR HGB CONC 33.1 g/dL CAL (32.0-36.0); NEUT# 4.92 thou/uL (1.82-7.42); RED BLOOD COUNT 2.74 mill/uL (4.70-6.10); RED CELL DISTRI WIDTH 14.3 % (11.5-15.5)
[2022-01-17 05:04] LABS: CREATININE 2.7 mg/dL (0.7-1.3); MAGNESIUM 2.1 mg/dL (1.6-2.3)
[2022-01-17 06:18] VITALS: BP 120/48
[2022-01-17 06:37] LABS: BILIRUBIN, TOTAL 0.5 mg/dL (0.0-1.4)
[2022-01-17 06:39] LABS: ALBUMIN 2.8 g/dL (3.2-5.0); TOTAL PROTEIN 5.6 g/dL (6.3-8.2)
--- NOTE | 2022-01-17 08:09 | NUR ---
RECIEVED REPORT. PT A/OX3. RESPIRATIONS EVEN AND UNLABORED ON ROOM AIR. LUNG SOUNDS CLEAR. HEART RHYTHM NORMAL. BOWEL SOUNDS ACTIVE, BM 01/16/22. #18G RFA INFUSING WITH IVF PER ORDER, SITE PATENT. ABCESS TO BACK NOTED, DRESSING REMAINS CDI. PT DENIES OF ANY PAINS OR DISCOMFORTS. PT INFORMED OF NPO STATUS. PT DENIES OF ANY ADDITIONAL NEEDS. ALL SAFTEY PRECAUTIONS ARE IN PLACE WITH CALL LIGHT IN REACH
[2022-01-17 10:30] VITALS: BP 127/56
--- NOTE | 2022-01-17 11:10 | NUR ---
CONSENT OBTAINED FOR ID OF BACK ABCESS. DR LE AT BEDSIDE. PT TOLERATED WELL. GUAZE PACK DRESSING APPLIED. REMAINS CDI
--- NOTE | 2022-01-17 12:01 | NUR ---
PT RESTING IN SEMI FOWLERS POSITION. RESPIRATIONS EVEN AND UNLABORED ON ROOM AIR. #18G RFA INFUSING WITH IVF PER ORDER. TELE MONITORING IN PLACE. DRESSING TO BACK CDI. PT DENIES OF ANY NEEDS. LUCH TRAY ORDERED. ALL SAFTEY PRECAUTIONS ARE IN PLACE WITH CALL LIGHT IN REACH
--- NOTE | 2022-01-17 13:16 | NUR ---
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 All medications in patient's chart were reviewed. O: VS: BP= 127/56 mmHG, P= 90BPM, RR 18BPM,T=97.7F W =65 kg, HT=74inches, Scr= 2.7mg/dl,CrCl= 19.3 ml/min A: Wound culture and nose MRSA result is pending. P: Patient is on Vancomycin 1GM Q48H Vancomycin ordered for pharmacy to dose. Start Vancomycin 1g IV Q48H. Vancomycin trough is drawn before the 3rd dose on jan 19 dose @ 19:40 Vancomycin goal trough is between 10-20 mcg/ml. Pharmacy will follow and or advise on antibiotics use as needed.
--- NOTE | 2022-01-17 13:41 | NUR ---
POINT OF CARE TECHNICIAN ATTEMPTED TO SEE PT. PT WAS NPO FOR PROCEDURE. WILL F/U 01/18.
[2022-01-17] MEDS ORDERED: VITAMIN D2400 UNIT PO (13:48)
[2022-01-17 14:20] VITALS: BP 123/50
--- NOTE | 2022-01-17 16:17 | NUR ---
PT RESTING IN SEMI FOWLERS POSITION. RESPIRATIONS EVEN AND UNLABORED WITH NO DISTRESS NOTED ON ROOM AIR. #18G RFA INFUSING WITH IVF PER ORDER, SITE PATENT. TELE MONITORING IN PLACE. 100 UA NOTED. DRESSING TO BACK REMAINS CDI. PT DENIES OF ANY NEEDS. ALL SAFTEY PRECAUTIONS ARE IN PLACE WITH CALL LIGHT IN REACH
--- NOTE | 2022-01-17 16:49 | NUR ---
called nitin spoke to merari was given confirmation number [id number] to place air mattress on this pt.
[2022-01-17 18:50] VITALS: BP 134/43
[2022-01-18 00:01] VITALS: BP 150/57
[2022-01-18 03:55] VITALS: BP 135/52
[2022-01-18 05:35] LABS: CREATININE 2.3 mg/dL (0.7-1.3); MAGNESIUM 1.9 mg/dL (1.6-2.3); POTASSIUM 4.7 mmol/l (3.5-5.1)
[2022-01-18 05:49] LABS: HEMATOCRIT 26.7 % (39.0-50.0); HEMOGLOBIN 8.4 g/dl (14.0-18.0); IMMATURE GRANULOCYTES 0.6 % (0.0-5.0); MEAN CELL VOLUME 92.1 fL CALC (80.0-100.0); MEAN CORPUSCULAR HGB CONC 31.5 g/dL CAL (32.0-36.0); NEUT# 4.02 thou/uL (1.82-7.42); RED BLOOD COUNT 2.9 mill/uL (4.70-6.10); RED CELL DISTRI WIDTH 14.7 % (11.5-15.5)
[2022-01-18 06:05] VITALS: BP 127/52
[2022-01-18 07:56] VITALS: BP 127/52
--- NOTE | 2022-01-18 08:25 | NUR ---
PT RESTING IN BED UPON ENTERING ROOM. STATES NO PAIN. ASSESSMENT PERFORMED. TELE MONITOR IN PLACE, CONTINOUS MONITORING PER ED. DRESSING CHANGED PERFORMED PER WOUND CARE ORDERS. IV PATENT/FLUSHED. UPDATED PT ON CURRENT PLAN OF CARE. FALL/SAFTEY PRECAUTION IN PALCE, CALL LIGHT WITHIN REACH
[2022-01-18] MEDS ORDERED: OMNICEF300 MG PO (10:46)
[2022-01-18 10:56] VITALS: BP 139/64
[2022-01-18 11:02] VITALS: BP 139/64
--- NOTE | 2022-01-18 12:30 | NUR ---
PT EATING LUNCH. NO DISTRESS NOTED. BREATHING EVEN AND UNLABORED. FALL/SAFTEY PRECAUTION IN PLACE. CALL LIGHT WITHIN REACH
--- NOTE | 2022-01-18 13:36 | NUR ---
Discharge instructions given. Patient verbalizes understanding of same. Discharged in stable condition via Wheel[facility] to [facility] with [facility]. All belongings sent with pt. TELE REMOVED AND PLACED IN FRONT OF DESK AREA
--- NOTE | 2022-01-21 18:41 | NUR ---
CALLED CLAUDIO IN REGARD TO CANCEL AIR MATTRESS FOR PT. PT WAS DC ON 01/17 AND WAS ALSO PLACED THAT VERY SAME DAY. ROTARY ENGRAVER TOOK MATTRESS BACK WITH HIM AND DIDNT PLACE ON BED AT ALL.
== END 2022-01-18 13:27 ==
LOC: ED 14:04 → ED-I 15:25 → ED 15:52 → MS2 15:53
PROVIDERS: Family Medicine; Nurse Practitioner; ADMIT Internal Medicine; ATTEND Internal Medicine
PROC: 0H96XZZ Drainage of Back Skin, External Approach (ICD-10-PCS; principal; 2022-01-17)
DX: N17.9 Acute kidney failure, unspecified (principal); L72.3 Sebaceous cyst; L02.212 Cutaneous abscess of back [any part, except buttock and flank]; E11.40 Type 2 diabetes mellitus with diabetic neuropathy, unspecified; E11.22 Type 2 diabetes mellitus with diabetic chronic kidney disease; I12.9 Hypertensive chronic kidney disease with stage 1 through stage 4 chronic kidney disease, or unspecified chronic kidney disease; N18.9 Chronic kidney disease, unspecified; I25.10 Atherosclerotic heart disease of native coronary artery without angina pectoris; F17.200 Nicotine dependence, unspecified, uncomplicated; B96.4 Proteus (mirabilis) (morganii) as the cause of diseases classified elsewhere; Z59.1 Inadequate housing; Z20.822 Contact with and (suspected) exposure to COVID-19

== ENCOUNTER 2022-04-23 09:15 | Emergency (ER) | payer MEDICARE ==
[~2022-04-23] VITALS: Ht 188 cm; Wt 55.0 kg
[~2022-04-23 09:15] MED LIST changes: +OMNICEF300 MG PO
[2022-04-23 09:59] LABS: BASO% 0.1 % (0-3); EOS% 0.7 % (0-8); IMMATURE GRANULOCYTES 0.3 % (0.0-5.0); LYMPH% 11.1 % (15-41); MEAN CELL VOLUME 94.5 fL CALC (80.0-100.0); MEAN CORPUSCULAR HGB 30.5 pG CALC (26.0-32.0); MEAN CORPUSCULAR HGB CONC 32.2 g/dL CAL (32.0-36.0); MONO% 4.3 % (2-13); NEUT# 12.55 thou/uL (1.82-7.42); NEUT% 83.5 % (42-76); RED BLOOD COUNT 3.48 mill/uL (4.70-6.10); RED CELL DISTRI WIDTH 13.5 % (11.5-15.5)
[2022-04-23 10:04] LABS: BILIRUBIN, TOTAL 0.3 mg/dL (0.0-1.4); CREATININE 2.1 mg/dL (0.7-1.3)
[2022-04-23 10:05] LABS: HEMATOCRIT 32.9 % (39.0-50.0); HEMOGLOBIN 10.6 g/dl (14.0-18.0)
[2022-04-23 10:09] LABS: POTASSIUM 5.6 mmol/l (3.5-5.1)
[2022-04-23 10:10] LABS: TOTAL PROTEIN 8.2 g/dL (6.3-8.2)
[2022-04-23 11:02] LABS: URINE BILIRUBIN - DIPSTICK NEGATIVE (NEGATIVE); URINE BLOOD DIPSTICK MODERATE (NEGATIVE); URINE COLOR YELLOW; URINE GLUCOSE - DIPSTICK NEGATIVE (NEGATIVE); URINE KETONE NEGATIVE (NEGATIVE); URINE PROTEIN - DIPSTICK 30 mg/dL (NEG-TRACE)
[2022-04-23 11:04] LABS: URINE LEUK ESTERASE MODERATE (NEGATIVE); URINE NITRITE - DIPSTICK POSITIVE (Negative)
[2022-04-23 11:05] LABS: URINE BACTERIA MODERATE hpf; URINE EPITHELIAL CELLS FEW EPI/hpf (0-FEW); URINE WBC 20-50 WBC/hpf (0-5)
[2022-04-23 12:33] VITALS: BP 138/72
== END 2022-04-23 14:54 | disposition home or self-care (01) ==
LOC: ED 09:15
PROVIDERS: Family Medicine
DX: N39.0 Urinary tract infection, site not specified (principal); B96.20 Unspecified Escherichia coli [E. coli] as the cause of diseases classified elsewhere; E87.5 Hyperkalemia; I12.9 Hypertensive chronic kidney disease with stage 1 through stage 4 chronic kidney disease, or unspecified chronic kidney disease; N18.9 Chronic kidney disease, unspecified; I25.10 Atherosclerotic heart disease of native coronary artery without angina pectoris; G62.9 Polyneuropathy, unspecified; Z20.822 Contact with and (suspected) exposure to COVID-19

== ENCOUNTER 2024-04-05 12:14 | Inpatient (IN) | payer MEDICARE ==
[2024-04-05] VITALS (25 sets, daily range): BP systolic 106–181; BP diastolic 48–92
[~2024-04-05] VITALS: Ht 188 cm; Wt 61.5 kg
[2024-04-05] MEDS ORDERED: ZOLOFT25 MG PO (12:51)
[2024-04-05 12:58] LABS: BASO% 0.4 % (0-3); EOS% 1.5 % (0-8); HEMATOCRIT 37.3 % (39.0-50.0); HEMOGLOBIN 11.6 g/dl (14.0-18.0); IMMATURE GRANULOCYTES 0.1 % (0.0-5.0); LYMPH% 19.7 % (15-41); MEAN CELL VOLUME 90.5 fL CALC (80.0-100.0); MEAN CORPUSCULAR HGB 28.2 pG CALC (26.0-32.0); MEAN CORPUSCULAR HGB CONC 31.1 g/dL CAL (32.0-36.0); NEUT# 5.44 thou/uL (1.82-7.42); NEUT% 73.3 % (42-76); RED BLOOD COUNT 4.12 mill/uL (4.70-6.10); RED CELL DISTRI WIDTH 13.3 % (11.5-15.5)
[2024-04-05 13:05] LABS: ALBUMIN 4.3 g/dL (3.2-5.0); CREATININE 1.9 mg/dL (0.7-1.3); POTASSIUM 4.8 mmol/l (3.5-5.1); TOTAL PROTEIN 7.3 g/dL (6.3-8.2)
[2024-04-05 13:17] LABS: BILIRUBIN, TOTAL 0.6 mg/dL (0.2-1.3)
[2024-04-05] MEDS ORDERED: SODIUM CHLORIDE 0.9% 1,000 ML IV ONE ×2 (13:20→14:55)
--- NOTE | 2024-04-05 13:52 | NUR ---
Pt stil unable to give urine sample and ref cath
--- NOTE | 2024-04-05 15:06 | NUR ---
Pt still unale to produce urine sample. Pt straight cathed for urine
[2024-04-05 15:45] LABS: URINE BILIRUBIN - DIPSTICK Negative (NEGATIVE); URINE BLOOD DIPSTICK Negative (NEGATIVE); URINE GLUCOSE - DIPSTICK Negative (NEGATIVE); URINE KETONE Negative (NEGATIVE); URINE LEUK ESTERASE Negative (NEGATIVE); URINE NITRITE - DIPSTICK Negative (Negative); URINE PH 5.5 (4.5-8.0); URINE PROTEIN - DIPSTICK 100 mg/dL (NEG-TRACE); URINE UROBILINOGEN - DIPSTICK 0.2 E.U./dL (0.2)
[2024-04-05 15:46] LABS: URINE COLOR Yellow
[2024-04-05] MEDS ORDERED: AMLODIPINE BESYL5 MG PO (15:52)
--- NOTE | 2024-04-05 15:54 | NUR ---
attempt to call report, nurse un avaible will return call
[2024-04-05 15:59] LABS: URINE SQUAMOUS EPITHELIAL CELL RARE EPI/hpf (0-FEW)
--- NOTE | 2024-04-05 16:13 | NUR ---
report given to MS nurse
[2024-04-05] MEDS ORDERED: MAGNESIUM HYDROXIDE 30 ML UDC PO PRN (16:40)
[2024-04-05] MEDS ORDERED: ACETAMINOPHEN 325 MG/TAB PO PRN (16:40)
[2024-04-05] MEDS ORDERED: SODIUM CHLORIDE 0.9% 1,000 ML IV PRN (16:40)
--- NOTE | 2024-04-05 18:12 | NUR ---
REPORT RECEIVED FROM [facility], PT ARRIVED ON UNIT AT 1809 TRANSPORTED VIA STRETCHER AND ASSISTED TO BED. ALERT AND ORIENTED X 3, NO C/O PAIN/DISCOMFORT, O2 @ 2L VIA NC IN PLACE, ORIENTED TO ROOM AND CALL LENZ, SERVED MEAL, SETTLED IN BED AT THIS TIME WITH CALL LENZ IN REACH.
--- NOTE | 2024-04-05 19:44 | NUR ---
Pt is alert and orient. He is able to make needs known. Pt is sitting up in bed watching television. No complaint of pain or discomfort at this time. No distress noted. Pt is breathing even and non-labored on 2L n/c. Bed is in low position with calllight witin reach.
[2024-04-05] MEDS ORDERED: ENOXAPARIN SODIUM 30 MG/0.3 ML INJ SC SCH (21:00)
[2024-04-05] MEDS ORDERED: GABAPENTIN 300 MG/CAP PO SCH (21:00)
[2024-04-06] VITALS (10 sets, daily range): BP systolic 134–154; BP diastolic 39–59
--- NOTE | 2024-04-06 | NUR ---
Pt is up watching television. No complaint of pain or discomfort. No distress noted at this time. Pt breathing remains even and non-labored. Bed in low position with call light within reach.
--- NOTE | 2024-04-06 03:55 | NUR ---
Pt is resting in bed with his eyes closed. No report of pain or distress. Breathing remains even and non-labored. Bed in low position with call light within reach.
[2024-04-06 05:28] LABS: HEMATOCRIT 36.1 % (39.0-50.0); HEMOGLOBIN 10.9 g/dl (14.0-18.0); MEAN CELL VOLUME 93.8 fL CALC (80.0-100.0); MEAN CORPUSCULAR HGB 28.3 pG CALC (26.0-32.0); MEAN CORPUSCULAR HGB CONC 30.2 g/dL CAL (32.0-36.0); RED BLOOD COUNT 3.85 mill/uL (4.70-6.10); RED CELL DISTRI WIDTH 13.4 % (11.5-15.5)
[2024-04-06 05:53] LABS: ALBUMIN 3.6 g/dL (3.2-5.0); BILIRUBIN, TOTAL 0.7 mg/dL (0.2-1.3); CREATININE 1.5 mg/dL (0.7-1.3); MAGNESIUM 1.6 mg/dL (1.6-2.3); POTASSIUM 4.3 mmol/l (3.5-5.1); TOTAL PROTEIN 6.6 g/dL (6.3-8.2)
--- NOTE | 2024-04-06 06:55 | NUR ---
REPORT RECEIVED FROM MERARY BASSETT
--- NOTE | 2024-04-06 07:32 | NUR ---
AND JOSELO,VENKAT AT BEDSIDE DISCUSSING POC WITH PT.
[2024-04-06] MEDS ORDERED: amLODIPine BESYLATE 5 MG/TAB PO SCH (09:00)
[2024-04-06] MEDS ORDERED: SERTRALINE HCL 25 MG/TAB PO SCH (09:00)
--- NOTE | 2024-04-06 09:40 | NUR ---
PT RESTING IN SEMI FOWLERS POSITION,A&O X3;PT DENIES AN CURRENT PAIN OR DISCOMFORTS, PAIN SCALE AND REPORTING EDUCATED;VS OBTAINED AND ASSESSMENT COMPLETED;RESPIRATIONS SHALLOW ON O2 @ 2L VIA NC-PT REPORTS HE WEARS OXYGEN NEEDED AT HOME;CLEAR LUNG SOUNDS;ABDOMEN SOFT ON PALPATION AND ACTIVE IN ALL 4 QUADRANTS;STRONG PEDAL PULSES;SKIN INTACT;TELE MONITORING IN PLACE;#22G TO RFA WAS STARTED BY MERARY HOLLIS ON 1ST ATTEMPT, NS RE-STARTED AT 10ML/HR PER ORDER;PT DENIES ANY ADDITIONAL NEEDS AND IS ENCOURAGED TO CALL FOR ASSISTANCE IF NEEDED;FALL PRECAUTIONS IN PLACE WITH BED IN THE LOWEST POSITION AND BED ALARM ON FOR SAFETY;CALL LIGHT IN REACH;FREQUENT ROUNDS MADE.
--- NOTE | 2024-04-06 10:02 | NUR ---
PHYSICAL THERAPY AT BEDSIDE WORKING WITH PT
--- NOTE | 2024-04-06 11:35 | NUR ---
PT RESTING IN SEMI FOWLERS POSITION WATCHING TV;RESPIRATIONS EVEN AND UNLABORED ON O2 @ 2L VIA NC;PT DENIES ANY CURRENT PAIN OR DISCOMFORTS;TELE MONITORING IN PLACE;#22G TO RFA CONTINUES TO INFUSE NS @ 10ML/HR PER ORDER;PT DENIES ANY ADDITIONAL QUESTIONS OR NEEDS;ENCOURAGED TO CALL FOR ASSISTANCE IF NEEDED;FALL PRECAUTIONS REMAIN IN PLACE WITH BED IN THE LOWEST POSITION AND BED ALARM ON FOR SAFETY;CALL LIGHT IN REACH;FREQUENT ROUNDS MADE.
--- NOTE | 2024-04-06 15:45 | NUR ---
PT RESTING IN SEMI FOWLERS POSITION;RESPIRATIONS EVEN AND UNLABORED ON O2 @ 2L VIA NC;PT DENIES ANY CURRENT PAIN OR DISCOMFORTS;TELE MONITORING IN PLACE;IV SITE TO RFA REMAINS PATENT;PT DENIES ANY ADDITIONAL NEEDS AND IS ENCOURAGED TO CALL FOR ASSISTANCE IF NEEDED;CALL LIGHT REMAINS IN REACH;FREQUENT ROUNDS MADE.
--- NOTE | 2024-04-06 19:32 | NUR ---
Pt is up in bed watching television. Pt is alert and orient and able to make needs known. NO distress noted. No pain or discomfort reported at this time. Pt is breathing even and non-labored on 02 2L n/c. Bed in low position with call light within reach.
--- NOTE | 2024-04-06 23:31 | NUR ---
Pt is laying in bed with his eyes closed. NO distress noted. No s/s of pain or discomfort. Pt is breathing even and non-labored on 2L n/c. Bed remains in low position with call light within reach.
[2024-04-07 00:02] VITALS: BP 146/39
--- NOTE | 2024-04-07 04:23 | NUR ---
Pt is alert and awake watching tv without complaint of pain or discomfort. No distress noted. Pt is breathing even and non-labored on 2L n/c.
[2024-04-07 04:24] VITALS: BP 146/69
[2024-04-07 05:24] LABS: BASO% 0.2 % (0-3); EOS% 3.2 % (0-8); HEMATOCRIT 34.7 % (39.0-50.0); HEMOGLOBIN 10.3 g/dl (14.0-18.0); IMMATURE GRANULOCYTES 0.2 % (0.0-5.0); LYMPH% 33.5 % (15-41); MEAN CELL VOLUME 95.3 fL CALC (80.0-100.0); MEAN CORPUSCULAR HGB 28.3 pG CALC (26.0-32.0); MEAN CORPUSCULAR HGB CONC 29.7 g/dL CAL (32.0-36.0); MONO% 9.4 % (2-13); NEUT# 2.67 thou/uL (1.82-7.42); NEUT% 53.5 % (42-76); RED BLOOD COUNT 3.64 mill/uL (4.70-6.10); RED CELL DISTRI WIDTH 14.2 % (11.5-15.5)
[2024-04-07 05:30] LABS: ALBUMIN 3.4 g/dL (3.2-5.0); BILIRUBIN, TOTAL 0.6 mg/dL (0.2-1.3); CREATININE 1.9 mg/dL (0.7-1.3); MAGNESIUM 1.5 mg/dL (1.6-2.3); POTASSIUM 4.4 mmol/l (3.5-5.1); TOTAL PROTEIN 6.2 g/dL (6.3-8.2)
[2024-04-07 06:28] VITALS: BP 142/53
--- NOTE | 2024-04-07 07:20 | NUR ---
PT LAYING IN BED RESTING WITH EYES CLOSED, AROUSES EASILY TO VERBAL STIMULI, PUPILS PERRL, NORMAL S1 S2 HEART SOUNDS, TELE MONITOR IN PLACE, RESP. EVEN AND UNLABORED, LUNG SOUNDS DIMINISHED IN THE BASES, ABD DISTENDED AND SOFT WITH ACTIVE BOWEL SOUNDS, STRONG RADIAL AND PEDAL PULSES, SAFETY MEASURES REINFORCED, CALL LENZ WITHIN REACH
[2024-04-07 10:32] VITALS: BP 163/68
--- NOTE | 2024-04-07 12:00 | NUR ---
PT SITTING UP IN BED WATCHING TV AND EATING LUNCH, PT TOLERATING WELL, NO S/S OF DISTRESS, CALL LENZ WITHIN REACH
[2024-04-07 15:10] VITALS: BP 158/54
--- NOTE | 2024-04-07 16:00 | NUR ---
FAMILY AT BEDSIDE, PT EATING FOOD BROUGHT IN BY FAMILY, NO S/S OF DISTRESS, CALL LENZ WITHIN REACH
[2024-04-07 18:31] VITALS: BP 140/45
[2024-04-08] VITALS (9 sets, daily range): BP systolic 116–149; BP diastolic 45–64
--- NOTE | 2024-04-08 00:03 | NUR ---
PATIENT OBSERVED TO BE RESTING IN BED WITH EYES CLOSED. O2 VIA NC AT 2L WITH EQUAL UNLABORED RESP. NO VISUAL SIGNS OF DISTRESS. SAFTY PRECAUTIONS IN PLACE BED AT LOWEST POSITION. CALL LIGHT WITH IN REACH.
--- NOTE | 2024-04-08 04:30 | NUR ---
PATIENT IN ROOM RESTING IN BED AWAKE. PATIENT CAN MAKE NEEDS KNOWN, NONE NEEDED AT THIS TIME. EQUAL UNLABORED RESP, WITH O2 VIA NC AT 2L. NO VISUAL SIGNS OF DISTRESS. BED AT LOWEST POSITION. CALL LIGHT WITH IN REACH.
[2024-04-08 04:49] LABS: HEMATOCRIT 31.4 % (39.0-50.0); MEAN CELL VOLUME 91.5 fL CALC (80.0-100.0); MEAN CORPUSCULAR HGB 29.2 pG CALC (26.0-32.0); MEAN CORPUSCULAR HGB CONC 31.8 g/dL CAL (32.0-36.0); RED BLOOD COUNT 3.43 mill/uL (4.70-6.10); RED CELL DISTRI WIDTH 13.5 % (11.5-15.5)
[2024-04-08 05:02] LABS: ALBUMIN 3.5 g/dL (3.2-5.0); BILIRUBIN, TOTAL 0.4 mg/dL (0.2-1.3); CREATININE 1.6 mg/dL (0.7-1.3); MAGNESIUM 1.5 mg/dL (1.6-2.3); POTASSIUM 4.7 mmol/l (3.5-5.1); TOTAL PROTEIN 6.2 g/dL (6.3-8.2)
--- NOTE | 2024-04-08 08:00 | NUR ---
REPORT RECEIVED FROM NIGHT NURSE. PT IS A/O TO PERSON/PLACE. REPOSITIONED IN BED AND GIVEN BREAKFAST TRAY. LUNGS DIMINISHED; PT IS ON 1LNC. REPORTS SOME NERVE PAIN IN FOOT; PT TO GET MORNING MEDS. PT DENIES ANY NEEDS AT THIS TIME. CALL [facility] IN REACH.
--- NOTE | 2024-04-08 12:00 | NUR ---
no changes to pt status. pt cleaned up by conservation officer and repositioned in bed. pt sittting up now and eating lunch. call light in reach. pt denies any other needs at this time.
--- NOTE | 2024-04-08 14:30 | NUR ---
BEDSIDE REPORT FROM JAYSON REAGAN. ASSUMED PT CARE AT THIS TIME. ASSISTED PT X2 PERSON ASSIST BACK INTO BED AND REPOSITIONED. CALL LIGHT WITHIN REACH. WILL CONTINUE TO MONITOR.
--- NOTE | 2024-04-08 19:25 | NUR ---
Pt is alert and orient and able to make needs known. Pt has no complaint of pain or discomfort at this time. Pt is breathing even and non-labored on room O2 2L n/c. No distress noted at this time.
--- NOTE | 2024-04-08 23:55 | NUR ---
Pt resting comfortably at this time. No distress noted. Vital signs stable. No complaint of paint or discomfort. Breathing is even and non-labored on 2L n/c.
[2024-04-09] VITALS (7 sets, daily range): BP systolic 112–148; BP diastolic 43–65
--- NOTE | 2024-04-09 04:07 | NUR ---
Pt resting in bed comfortably. Pt recieved complete bed bath with linen change. Pt is alert and awake watching tv. No distress noted at this time.
[2024-04-09 07:28] LABS: BASO% 0.3 % (0-3); EOS% 1.9 % (0-8); HEMATOCRIT 37.2 % (39.0-50.0); HEMOGLOBIN 11.7 g/dl (14.0-18.0); IMMATURE GRANULOCYTES 0.2 % (0.0-5.0); LYMPH% 19.6 % (15-41); MEAN CELL VOLUME 90.3 fL CALC (80.0-100.0); MEAN CORPUSCULAR HGB 28.4 pG CALC (26.0-32.0); MEAN CORPUSCULAR HGB CONC 31.5 g/dL CAL (32.0-36.0); MONO% 7.6 % (2-13); NEUT# 7.52 thou/uL (1.82-7.42); NEUT% 70.4 % (42-76); RED BLOOD COUNT 4.12 mill/uL (4.70-6.10); RED CELL DISTRI WIDTH 13.7 % (11.5-15.5)
[2024-04-09 07:49] LABS: ALBUMIN 3.9 g/dL (3.2-5.0); CREATININE 1.7 mg/dL (0.7-1.3); MAGNESIUM 1.6 mg/dL (1.6-2.3); POTASSIUM 4.9 mmol/l (3.5-5.1); TOTAL PROTEIN 6.9 g/dL (6.3-8.2)
[2024-04-09 07:50] LABS: BILIRUBIN, TOTAL 0.8 mg/dL (0.2-1.3)
[2024-04-09] MEDS ORDERED: LACTULOSE 20 GM/30 ML UDC PO SCH (11:30)
== END 2024-04-09 14:30 | DRG 683 ==
LOC: ED 12:14 → ED-I 15:00 → MS2 15:09 → ED 15:09 → MS2 04-06 10:13
PROVIDERS: Nurse Practitioner; Nurse Practitioner Family; ADMIT Internal Medicine; ATTEND Internal Medicine
DX: N17.9 Acute kidney failure, unspecified (principal); E46 Unspecified protein-calorie malnutrition; R64 Cachexia; E86.0 Dehydration; I12.9 Hypertensive chronic kidney disease with stage 1 through stage 4 chronic kidney disease, or unspecified chronic kidney disease; E11.22 Type 2 diabetes mellitus with diabetic chronic kidney disease; N18.9 Chronic kidney disease, unspecified; E11.42 Type 2 diabetes mellitus with diabetic polyneuropathy; I25.10 Atherosclerotic heart disease of native coronary artery without angina pectoris; I48.0 Paroxysmal atrial fibrillation; G62.9 Polyneuropathy, unspecified; Z20.822 Contact with and (suspected) exposure to COVID-19
CPT/HCPCS: J1650

== ENCOUNTER 2024-05-07 10:18 | Inpatient (IN) | payer MEDICARE, MEDICAID ==
[2024-05-07] VITALS (12 sets, daily range): BP systolic 112–152; BP diastolic 53–69
[~2024-05-07] VITALS: Ht 188 cm; Wt 82.0 kg
[~2024-05-07 10:18] MED LIST changes: +AMLODIPINE BESYL5 MG PO; +ZOLOFT25 MG PO
[2024-05-07 11:01] LABS: BASO% 0.3 % (0-3); EOS% 1.2 % (0-8); HEMOGLOBIN 10.8 g/dl (14.0-18.0); IMMATURE GRANULOCYTES 0.2 % (0.0-5.0); LYMPH% 23.1 % (15-41); MEAN CELL VOLUME 92.6 fL CALC (80.0-100.0); MEAN CORPUSCULAR HGB 28.6 pG CALC (26.0-32.0); MEAN CORPUSCULAR HGB CONC 30.9 g/dL CAL (32.0-36.0); MONO% 7.1 % (2-13); NEUT# 6.95 thou/uL (1.82-7.42); NEUT% 68.1 % (42-76); RED BLOOD COUNT 3.78 mill/uL (4.70-6.10); RED CELL DISTRI WIDTH 13.5 % (11.5-15.5)
[2024-05-07 11:18] LABS: ALBUMIN 3.7 g/dL (3.2-5.0); BILIRUBIN, TOTAL 0.8 mg/dL (0.2-1.3); CREATININE 2.1 mg/dL (0.7-1.3); MAGNESIUM 1.7 mg/dL (1.6-2.3); TOTAL PROTEIN 7.2 g/dL (6.3-8.2)
[2024-05-07 11:20] LABS: POTASSIUM 5.8 mmol/l (3.5-5.1)
[2024-05-07 11:48] LABS: TSH, 3RD GENERATION 0.66 uIU/mL (0.47 - 4.68)
[2024-05-07 12:18] LABS: URINE BILIRUBIN - DIPSTICK Negative (NEGATIVE); URINE BLOOD DIPSTICK Small (NEGATIVE); URINE GLUCOSE - DIPSTICK Negative (NEGATIVE); URINE KETONE Negative (NEGATIVE); URINE NITRITE - DIPSTICK Negative (Negative); URINE PH 7.5 (4.5-8.0); URINE PROTEIN - DIPSTICK >=300 mg/dL (NEG-TRACE)
[2024-05-07 12:20] LABS: URINE COLOR Yellow; URINE LEUK ESTERASE Small (NEGATIVE)
[2024-05-07] MEDS ORDERED: DEXTROSE 10% 500 ML BAG IV ONE (12:20)
[2024-05-07] MEDS ORDERED: INSULIN REGULAR (HUMAN) 100 UNIT/ML INJ IV ONE (12:20)
[2024-05-07] MEDS ORDERED: SODIUM CHLORIDE 0.9% 1,000 ML IV ONE (12:20)
[2024-05-07] MEDS ORDERED: CALCIUM GLUCONATE 2 GM in SODIUM CHLORIDE 0.9% 100 ML IV ONE (12:20)
[2024-05-07 12:29] LABS: URINE RBC 0-2 RBC/hpf (0-5)
[2024-05-07 12:30] LABS: URINE BACTERIA MANY hpf; URINE SQUAMOUS EPITHELIAL CELL FEW EPI/hpf (0-FEW); URINE WBC 20-50 WBC/hpf (0-5)
[2024-05-07] MEDS ORDERED: ALBUTEROL SULFATE 2.5 MG VIAL IN ONE (13:35)
[2024-05-07] MEDS ORDERED: cefTRIAXone SODIUM 2 GM in SODIUM CHLORIDE 0.9% 100 ML IV ONE (14:10)
[2024-05-07 14:31] LABS: CREATININE 1.9 mg/dL (0.7-1.3)
[2024-05-07 14:35] LABS: POTASSIUM 5.7 mmol/l (3.5-5.1)
[2024-05-07] MEDS ORDERED: OSELTAMIVIR PHOSPHATE 75 MG/TAB CAP PO ONE (14:40)
[2024-05-07] MEDS ORDERED: ACETAMINOPHEN 325 MG/TAB PO PRN (18:05)
[2024-05-07] MEDS ORDERED: MAGNESIUM HYDROXIDE 30 ML UDC PO PRN (18:05)
[2024-05-07] MEDS ORDERED: SODIUM CHLORIDE 0.9% 1,000 ML IV PRN (18:05)
[2024-05-07] MEDS ORDERED: GABAPENTIN 300 MG/CAP PO SCH (21:00)
[2024-05-08] VITALS (8 sets, daily range): BP systolic 122–150; BP diastolic 30–68
[2024-05-08] MEDS ORDERED: amLODIPine BESYLATE 5 MG/TAB PO SCH (09:00)
[2024-05-08] MEDS ORDERED: SERTRALINE HCL 25 MG/TAB PO SCH (09:00)
[2024-05-08] MEDS ORDERED: OSELTAMIVIR PHOSPHATE 30 MG/CAP PO SCH (10:30)
[2024-05-08 11:11] LABS: CREATININE 1.7 mg/dL (0.7-1.3)
[2024-05-08 11:32] LABS: POTASSIUM 5.5 mmol/l (3.5-5.1)
[2024-05-08] MEDS ORDERED: DEXTROSE 250 ML IV PRN (11:45)
[2024-05-08] MEDS ORDERED: INSULIN LISPRO 100 UNITS/ML ML SC SCH (17:00)
[2024-05-09] VITALS (9 sets, daily range): BP systolic 123–157; BP diastolic 57–76
[2024-05-09 05:31] LABS: HEMATOCRIT 30.3 % (39.0-50.0); HEMOGLOBIN 9.6 g/dl (14.0-18.0); MEAN CORPUSCULAR HGB 28.8 pG CALC (26.0-32.0); MEAN CORPUSCULAR HGB CONC 31.7 g/dL CAL (32.0-36.0); RED BLOOD COUNT 3.33 mill/uL (4.70-6.10); RED CELL DISTRI WIDTH 13.5 % (11.5-15.5)
[2024-05-09 05:48] LABS: ALBUMIN 2.9 g/dL (3.2-5.0); BILIRUBIN, TOTAL 0.4 mg/dL (0.2-1.3); CREATININE 1.6 mg/dL (0.7-1.3); POTASSIUM 4.8 mmol/l (3.5-5.1); TOTAL PROTEIN 6.1 g/dL (6.3-8.2)
[2024-05-10] VITALS (8 sets, daily range): BP systolic 147–154; BP diastolic 53–63
[2024-05-10 04:32] LABS: HEMATOCRIT 29.8 % (39.0-50.0); HEMOGLOBIN 9.4 g/dl (14.0-18.0); MEAN CORPUSCULAR HGB 28.4 pG CALC (26.0-32.0); MEAN CORPUSCULAR HGB CONC 31.5 g/dL CAL (32.0-36.0); RED BLOOD COUNT 3.31 mill/uL (4.70-6.10); RED CELL DISTRI WIDTH 13.2 % (11.5-15.5)
[2024-05-10 04:54] LABS: ALBUMIN 2.8 g/dL (3.2-5.0); BILIRUBIN, TOTAL 0.4 mg/dL (0.2-1.3); CREATININE 1.5 mg/dL (0.7-1.3); POTASSIUM 4.7 mmol/l (3.5-5.1); TOTAL PROTEIN 5.8 g/dL (6.3-8.2)
[2024-05-11 04:00] VITALS: BP 156/68
[2024-05-11 04:31] VITALS: BP 156/68
[2024-05-11 04:49] LABS: EOS% 8.1 % (0-8); HEMATOCRIT 32.2 % (39.0-50.0); HEMOGLOBIN 10.1 g/dl (14.0-18.0); IMMATURE GRANULOCYTES 0.2 % (0.0-5.0); LYMPH% 33.4 % (15-41); MEAN CELL VOLUME 91.7 fL CALC (80.0-100.0); MEAN CORPUSCULAR HGB 28.8 pG CALC (26.0-32.0); MEAN CORPUSCULAR HGB CONC 31.4 g/dL CAL (32.0-36.0); NEUT# 2.78 thou/uL (1.82-7.42); NEUT% 47.3 % (42-76); RED BLOOD COUNT 3.51 mill/uL (4.70-6.10); RED CELL DISTRI WIDTH 13.1 % (11.5-15.5)
[2024-05-11 05:01] LABS: ALBUMIN 3.1 g/dL (3.2-5.0); BILIRUBIN, TOTAL 0.3 mg/dL (0.2-1.3); CREATININE 1.9 mg/dL (0.7-1.3); MAGNESIUM 1.4 mg/dL (1.6-2.3); POTASSIUM 4.8 mmol/l (3.5-5.1); TOTAL PROTEIN 6.3 g/dL (6.3-8.2)
[2024-05-11 07:35] VITALS: BP 169/73
[2024-05-11] MEDS ORDERED: MAGNESIUM SULFATE HEPTAHYDRATE 50 ML IV SCH (08:30)
[2024-05-11] MEDS ORDERED: CIPROFLOXACN250 M1 PO (09:24)
[2024-05-11 11:09] VITALS: BP 156/60
== END 2024-05-11 14:00 | disposition home health service (06) | DRG 641 ==
LOC: ED 10:18 → ED-I 14:25 → ED 15:10 → MS2 15:11
PROVIDERS: Family Medicine; Nurse Practitioner Family; ADMIT Internal Medicine; ATTEND Internal Medicine
DX: E87.5 Hyperkalemia (principal); N39.0 Urinary tract infection, site not specified; B96.89 Other specified bacterial agents as the cause of diseases classified elsewhere; J10.1 Influenza due to other identified influenza virus with other respiratory manifestations; E86.0 Dehydration; I12.9 Hypertensive chronic kidney disease with stage 1 through stage 4 chronic kidney disease, or unspecified chronic kidney disease; E11.22 Type 2 diabetes mellitus with diabetic chronic kidney disease; N18.9 Chronic kidney disease, unspecified; E11.42 Type 2 diabetes mellitus with diabetic polyneuropathy; I25.10 Atherosclerotic heart disease of native coronary artery without angina pectoris; F17.290 Nicotine dependence, other tobacco product, uncomplicated
CPT/HCPCS: J0612; J0696; J1815; J3475